=== PATIENT | male | born 1980 | race American Indian/Alaskan Native ===

== ENCOUNTER 2022-05-13 00:53 | Emergency (ER) | payer SELFPAY ==
[2022-05-13 03:48] LABS: Hematocrit 45.8 % (35.5-45.6); Hemoglobin 15.6 gm/dl (11.8-15.2); Mean Corpuscular HGB Conc 34 % (32-34); Mean Corpuscular Volume 85 fl (84-94); Platelet Count 312 K/mm3 (140-440); Red Blood Count 5.41 M/mm3 (3.65-5.03)
[2022-05-13 04:02] LABS: INR 0.86 (0.87-1.13); Partial Thromboplastin Time 25.3 Sec. (24.2-36.6)
[2022-05-13] MEDS ORDERED: ALUM-MAG HYDROXIDE-SIMETHICONE 200-200-20MG/5ML ORAL LIQD 30 ML PO ONE (04:10)
[2022-05-13] MEDS ORDERED: LIDOCAINE VISCOUS 2% 15 ML ORAL LIQD PO ONE (04:10)
[2022-05-13 04:11] LABS: Creatine Kinase MB 5.3 ng/mL (0.0-4.0)
[2022-05-13 04:13] LABS: Alanine Aminotransferase 55 units/L (7-56); Albumin 4.7 g/dL (3.9-5); BUN/Creatinine Ratio 14; Blood Urea Nitrogen 14 mg/dL (9-20); Calcium 10.4 mg/dL (8.4-10.2); Chol/HDL Ratio 5.34 %; HDL Cholesterol 44 mg/dL (40-59); Hemolysis Index 15; LDL Cholesterol,Direct TNR mg/dL (50-130)
--- NOTE | 2022-05-13 04:38 | XRay Report ---
CHEST 1 VIEW INDICATION / CLINICAL INFORMATION: CP. COMPARISON: None available. FINDINGS: SUPPORT DEVICES: None. HEART / MEDIASTINUM: Heart size is within normal limits. Mediastinal contour demonstrates no signific ant abnormality. LUNGS / PLEURA: No significant pulmonary abnormality. BONES: No significant osseous abnormality. ADDITIONAL FINDINGS: No significant additional findings. IMPRESSION: 1. No active cardiopulmonary disease. Signer Name: Davis Joyce II, MD Signed: 05/13/2022 4:33 AM Workstation Name: [id number]
--- NOTE | 2022-05-13 04:57 | Cat Scan Report ---
CT ABDOMEN AND PELVIS WITH CONTRAST INDICATION / CLINICAL INFORMATION: epigastiic pain. TECHNIQUE: Axial CT images were obtained through the abdomen and pelvis after 100 cc Omnipaque [address] scans at this location are performed using CT dose reduction for ALARA by means of automated exposure control. COMPARISON: None available. FINDINGS: LOWER CHEST: No significant abnormality of the imaged chest. LIVER: Diffuse hepatic steatosis. Focal sparing adjacent to gallbladder fossa with additional nodule of increased attenuation in segment IV that might reflect focal sparing versus possible hemangioma. GALLBLADDER / BILE DUCTS: No significant abnormality. Biliary ducts grossly unremarkable. SPLEEN: No significant abnormality. PANCREAS: No significant abnormality. ADRENALS: No significant abnormality. KIDNEYS/URETERS: No stones or hydronephrosis. No solid renal lesion. STOMACH / DUODENUM / SMALL BOWEL: The stomach, duodenum, and small bowel demonstrate no significant a bnormality. No specific abnormality of the mesentery demonstrated. COLON: Diverticulosis without acute inflammation. APPENDIX: No significant abnormality. PERITONEUM: No free air or free fluid are present within the abdomen or pelvis. LYMPH NODES: No significant adenopathy. AORTA / ARTERIES: Moderate atherosclerotic calcification without acute abnormality. IVC / VEINS: No significant abnormality. URINARY BLADDER: No significant abnormality. REPRODUCTIVE ORGANS: No significant abnormality. SKELETAL SYSTEM: No significant abnormality. ADDITIONAL ABDOMINAL/PELVIC FINDINGS: None. IMPRESSION: 1. No imaging findings to suggest etiology of the provided symptoms. Signer Name: Davis Joyce II, MD Signed: 05/13/2022 4:53 AM Workstation Name: [id number]
--- NOTE | 2022-05-13 05:36 | Emergency Department Report ---
<YASMIN LESLIE - Last Filed: 05/13/22 05:31> ED General Adult HPI - General Chief complaint: Chest Pain Stated complaint: CHEST/ABDOMINAL PAIN PUI?: No Time Seen by Provider: 05/13/22 03:28 Source: patient Mode of arrival: Stretcher Limitations: No Limitations - History of Present Illness Initial comments: This is a 42-year-old male with medical history of hypertension, hyperlipidemia, and diabetes; denies myocardial infarction cardiac stents or stroke in the past. Patient came in today with concerns of epigastric discomfort radiated to the center of the chest and also felt palpitation that started earlier today around 5:00 PM which is the reason why he is in the ER today. Patient denies smoking, cocaine use; but endorses myocardial infarction of father at age less than 65 years old. At the time my evaluation patient denies any other symptoms such as fever chill night sweat dizziness blurred vision lightheadedness headache tinnitus ear pain runny nose sore throat loss of taste loss of smell short breath cough abdominal pain nausea vomiting diarrhea constipation joint pain muscle pain new rash and heat or cold intolerance. Severity scale (0 -10): 5 - Related Data Allergies Allergy/AdvReac Type Severity Reaction Status Date / Time No Known Allergies Allergy Unverified 05/13/22 03:03 ED Past Medical Hx - Past Medical History Hx Hypertension: Yes Hx Diabetes: Yes - Social History Smoking Status: Never Smoker ED Physical Exam - General Limitations: No Limitations General appearance: alert, in no apparent distress - Head Head exam: Present: atraumatic, normocephalic, normal inspection - Eye Eye exam: Present: normal appearance, PERRL, EOMI Pupils: Present: normal accommodation - ENT ENT exam: Present: normal exam - Neck Neck exam: Present: normal inspection, full ROM - Respiratory Respiratory exam: Present: normal lung sounds bilaterally - Cardiovascular Cardiovascular Exam: Present: tachycardia, normal heart sounds - GI/Abdominal GI/Abdominal exam: Present: soft - Extremities Exam Extremities exam: Present: normal inspection, normal capillary refill - Back Exam Back exam: Present: normal inspection, full ROM - Neurological Exam Neurological exam: Present: alert, oriented X3, CN II-XII intact - Psychiatric Psychiatric exam: Present: normal affect, normal mood - Skin Skin exam: Present: normal color ED Course - Reevaluation(s) Reevaluation #1: 05/13/22 05:37 HEART SCORE OF 2 (+2 FOR RISK FACTORS OF HTN, HLD, DM, FHXMI <65); WILL REPEAT TROPONIN TO ENSURE NO DELTA CHANGES BEFORE D/C. ED Medical Decision Making - Lab Data Result diagrams: 05/13/22 03:35 05/13/22 03:35 ED Disposition Clinical Impression: Palpitations Chest pain Qualifiers: Chest pain type: unspecified Qualified Code(s): R07.9 - Chest pain, unspecified Disposition: 07 LEFT AGAINST MEDICAL ADVICE Condition: Stable Instructions: Nonspecific Chest Pain, Adult Additional Instructions: Even though you signed out AGAINST MEDICAL ADVICE you can always come back if your symptoms worsen and you will be reevaluated and treated. Your thyroid profile lab is still pending at this point. Referrals: BENITO GARZA MD [Primary Care Provider] - 3-5 Days <DANE REHMAN - Last Filed: 05/13/22 10:10> ED Review of Systems ROS: Stated complaint: CHEST/ABDOMINAL PAIN Other details as noted in HPI ED Course Vital Signs 05/13/22 05/13/22 05/13/22 02:59 03:03 03:10 Temperature 98.4 F Pulse Rate 114 H Respiratory 15 16 Rate Blood Pressure 128/84 Blood Pressure 124/84 [Left] O2 Sat by Pulse 97 98 Oximetry 05/13/22 05/13/22 05/13/22 03:15 03:31 03:46 Temperature Pulse Rate 109 H 108 H 110 H Respiratory 14 20 17 Rate Blood Pressure 137/95 137/95 137/95 Blood Pressure [Left] O2 Sat by Pulse 97 90 97 Oximetry 05/13/22 05/13/22 05/13/22 04:01 04:17 04:30 Temperature Pulse Rate 107 H 107 H 106 H Respiratory 14 15 19 Rate Blood Pressure 137/95 137/95 137/95 Blood Pressure [Left] O2 Sat by Pulse 96 97 Oximetry 05/13/22 05/13/22 05/13/22 04:47 05:01 05:15 Temperature Pulse Rate 102 H 102 H 105 H Respiratory 12 17 19 Rate Blood Pressure 160/116 160/116 160/116 Blood Pressure [Left] O2 Sat by Pulse 97 97 95 Oximetry 07/20/22 07/20/22 07/20/22 05:31 05:45 06:01 Temperature Pulse Rate 102 H 99 H 101 H Respiratory 20 11 L 11 L Rate Blood Pressure 160/116 160/116 152/96 Blood Pressure [Left] O2 Sat by Pulse 97 95 97 Oximetry 05/13/22 05/13/22 05/13/22 06:15 06:31 06:45 Temperature Pulse Rate 103 H 101 H 106 H Respiratory 16 17 17 Rate Blood Pressure 152/96 152/96 152/96 Blood Pressure [Left] O2 Sat by Pulse 97 95 94 Oximetry 05/13/22 05/13/22 07:01 07:15 Temperature Pulse Rate 100 H 102 H Respiratory 16 15 Rate Blood Pressure 145/93 145/93 Blood Pressure [Left] O2 Sat by Pulse 94 97 Oximetry - Reevaluation(s) Reevaluation #2: 05/13/22 08:59 Dr Perea isigned this patient to me with a chest pain and waiting for second troponin--before discharge home-- resulted shortly to be negative. I spoke with this patient who denies any chest pain and says he sometime have palpitation and that was while he came to ED. Pt significant other was angry that the has been in the ED for 10 hours with nothing done for him. I went over the negative workup to piyush and reassured him and discharge home to follow up with his PCP and warning to return if symptoms worsen 05/13/22 10:06 Reevaluation #3: 05/13/22 10:09 Since this patient told me that he was having palpitation I went ahead and order thyroid profile per patient signed out AGAINST MEDICAL ADVICE before the reports can be resulted. ED Medical Decision Making - Lab Data Result diagrams: 05/13/22 03:35 05/13/22 03:35 Critical care attestation.: If time is entered above; I have spent that time in minutes in the direct care of this critically ill patient, excluding procedure time. ED Disposition Is pt being admited?: No Does the pt Need Aspirin: No Time of Disposition: 10:10
[2022-05-13 07:20] VITALS: BP 145/93
[2022-05-13 07:32] LABS: Creatine Kinase MB 5.4 ng/mL (0.0-4.0)
--- NOTE | 2022-05-14 13:42 | Electrocardiograph Report ---
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
== END 2022-05-13 11:24 | disposition left against medical advice (07) ==
LOC: ED 00:53
DX: A01.00 Typhoid fever, unspecified (principal); R00.2 Palpitations; R07.9 Chest pain, unspecified; I10 Essential (primary) hypertension; E11.9 Type 2 diabetes mellitus without complications
CPT/HCPCS: 36415; 71045; 74177; 80053; 80061; 82550; 82553; 82962; 83690; 83735; 84484; 85027; 85610; 85730; 93005; 99284; Q9967